=== PATIENT | male | born 1985 | race Caucasian/White ===

== ENCOUNTER 2018-04-09 21:11 | Emergency (ER) | END 2018-04-09 23:28 | disposition home or self-care (01) ==

== ENCOUNTER 2018-08-07 12:28 | Emergency (ER) | END 2018-08-07 15:14 | disposition home or self-care (01) ==

== ENCOUNTER 2018-08-10 20:36 | Inpatient (IN) | payer OTHER ==
[~2018-08-10] VITALS: Ht 175.3 cm; Wt 107.1 kg
[~2018-08-10 20:36] MED LIST: FAMO20TA18 PO; HYDR-4011 PO
[2018-08-10] MEDS ORDERED: morphine 4 MG/ML VIAL IV STA (20:55)
[2018-08-10] MEDS ORDERED: FAMOTIDINE 20 MG INJ IV STA (20:55)
[2018-08-10] MEDS ORDERED: SOD CHLORIDE 0.9% 1,000 ML IV STA (20:55)
[2018-08-10] MEDS ORDERED: ONDANSETRON 4 MG INJ IV STA (20:55)
--- NOTE | 2018-08-10 21:44 | ERD ---
ER Documentation Chief Complaint Chief Complaint upper abdominal pain x 4 days HPI This is a 33-year-old male who presents emergency department complaining of upper abdominal pain for the past 4 days. Patient states he was seen here couple of days ago and was told everything was normal but his pain has worsened. States he has been taking the Minetto with limited improvement in symptoms. Denies any fevers or chills, cough, chest pain or shortness of breath. ROS All systems reviewed and are negative except as per history of present illness. Medications Home Meds Active Scripts Famotidine* (Famotidine*) 20 Mg Tablet, 20 MG PO BID, #60 TAB Prov:SURESH SIMMONS PA-C 08/07/18 Hydrocodone/Acetaminophen (Minetto 5-325 Tablet) 1 Each Tablet, 1 TAB PO Q6H PRN for PAIN, #7 TAB Prov:SURESH SIMMONS PA-C 08/07/18 Allergies Allergies: Coded Allergies: No Known Allergy (Unverified , 08/07/18) PMhx/Soc History of diabetes Medical and Surgical Hx: pt denies Surgical Hx History of Surgery: No Anesthesia Reaction: No Hx Neurological Disorder: No Hx Respiratory Disorders: No Hx Cardiac Disorders: Yes (HTN) Hx Psychiatric Problems: No Hx Miscellaneous Medical Probl: Yes (DM) Hx Alcohol Use: Yes (OCASSIONALLY) Hx Substance Use: No Hx Tobacco Use: Yes (2 PACKS DAILY) Smoking Status: Current every day smoker FmHx Family History: diabetes; No coronary disease Physical Exam Vitals Vital Signs Date Temp Pulse Resp B/P (MAP) Pulse Ox O2 O2 Flow FiO2 Time Delivery Rate 08/10/18 97.8 102 20 144/95 98 20:38 (111) Physical Exam Const: obese, No acute distress Head: Atraumatic Eyes: Normal Conjunctiva ENT: Normal External Ears, Nose and Mouth. Neck: Full range of motion. No meningismus. Resp: Clear to auscultation bilaterally Cardio: Regular rate and rhythm, no murmurs Abd: Soft, realized upper abdominal tenderness. Non distended. Normal bowel sounds No tenderness to McBurney's. Skin: No petechiae or rashes Back: No midline or flank tenderness Ext: No cyanosis, or edema Neur: Awake and alert Psych: Normal Mood and Affect Result Diagram: 08/10/18210408/10/182104 Results 24 hrs Laboratory Tests Test 08/10/18 21:05 White Blood Count 9.7 10^3/ul Red Blood Count 5.42 10^6/ul Hemoglobin 13.8 g/dl Hematocrit 39.3 % Mean Corpuscular Volume 77.7 fl Mean Corpuscular Hemoglobin 27.3 pg Mean Corpuscular Hemoglobin Concent 35.1 g/dl Red Cell Distribution Width 13.8 % Platelet Count 217 10^3/UL Mean Platelet Volume 11.1 fl Immature Granulocytes % 0.500 % Neutrophils % 65.9 % Lymphocytes % 25.8 % Monocytes % 5.4 % Eosinophils % 2.0 % Basophils % 0.4 % Nucleated Red Blood Cells % 0.0 /100WBC Immature Granulocytes # 0.050 10^3/ul Neutrophils # 6.4 10^3/ul Lymphocytes # 2.5 10^3/ul Monocytes # 0.5 10^3/ul Eosinophils # 0.2 10^3/ul Basophils # 0.0 10^3/ul Nucleated Red Blood Cells # 0.0 10^3/ul Urine Color STRAW Urine Clarity CLEAR Urine pH 6.0 Urine Specific [place] 1.027 Urine Ketones NEGATIVE mg/dL Urine Nitrite NEGATIVE mg/dL Urine Bilirubin NEGATIVE mg/dL Urine Urobilinogen NEGATIVE mg/dL Urine Leukocyte Esterase NEGATIVE Jessica/ul Urine Microscopic RBC 3 /HPF Urine Microscopic WBC 0 /HPF Urine Hemoglobin 1+ mg/dL Urine Glucose 3+ mg/dL Urine Total Protein 1+ mg/dl Sodium Level 141 mmol/L Potassium Level 5.0 mmol/L Chloride Level 97 mmol/L Carbon Dioxide Level 23 mmol/L Anion Gap 21 Blood Urea Nitrogen 13 mg/dl Creatinine 0.72 mg/dl Est Glomerular Filtrat Rate mL/min > 60 mL/min Glucose Level 306 mg/dl Calcium Level 10.3 mg/dl Total Bilirubin 0.2 mg/dl Direct Bilirubin 0.00 mg/dl Indirect Bilirubin 0.2 mg/dl Aspartate Amino Transf (AST/SGOT) 74 IU/L Alanine Aminotransferase (ALT/SGPT) 57 IU/L Alkaline Phosphatase 81 IU/L Total Protein 8.2 g/dl Albumin 5.3 g/dl Globulin 2.90 g/dl Albumin/Globulin Ratio 1.82 Lipase 564 U/L Current Medications Medications Dose Sig/Anila Start Time Status Last (Trade) Ordered Route PRN Stop Time Admin Dose Reason Admin Sodium 1,000 ml @ Q1H STAT 08/10/18 DC 08/10/18 Chloride 1,000 mls/hr IV 20:55 21:09 08/10/18 21:54 Morphine 6 mg ONCE STAT 08/10/18 DC 08/10/18 Sulfate IV 20:55 21:09 (morphine) 08/10/18 20:57 Ondansetron 4 mg ONCE STAT 08/10/18 DC 08/10/18 HCl (Zofran IV 20:55 21:09 Inj) 08/10/18 20:57 Famotidine 20 mg ONCE STAT 08/10/18 DC 08/10/18 (Pepcid Iv) IV 20:55 21:09 08/10/18 20:57 DIAGNOSTIC IMAGING REPORT Patient: CAITLIN CROUCH : 1985 Age: 33 Sex: M MR #: [id number] DOS: 08/10/182054 Ordering MD: INDU LOPEZ PA-C Location: [facility] Room/Bed: PROCEDURE: Abdominal ultrasound, limited. CLINICAL INDICATION: Abdominal pain. TECHNIQUE: Multiple real-time images were acquired of the patient's right upper abdomen utilizing a high resolution transducer. COMPARISON: 08/07/2018. FINDINGS: The liver demonstrates increased echogenicity and size measuring 22.5 cm. There is no focal mass or intrahepatic biliary ductal dilatation. The portal vein is patent. The gallbladder is not distended. No gallstones are identified. There is no pericholecystic fluid or gallbladder wall thickening. The common bile duct measures 4.7 mm in maximal dimension. The pancreas is obscured by overlyin g bowel gas. No free fluid is identified. The right kidney is normal size and echogenicity measuring 13.9 cm. There is no focal renal mass or echogenic calculus identified. There is no obstructive uropathy. IMPRESSION: Enlarged liver with fatty infiltration. Pancreas obscured by overlying bowel gas. .Param Fitzgerald MD, Date Time Electronically viewed and signed by .Param Fitzgerald MD, on 08/10/2018 21:54 .T/ CC: INDU LOPEZ PA-C [id number] DIAGNOSTIC IMAGING REPORT Patient: CAITLIN CROUCH : 1985 Age: 33 Sex: M MR #: [id number] DOS: 08/10/182054 Ordering MD: INDU LOPEZ PA-C Location: [facility] Room/Bed: PROCEDURE: CT Abdomen and pelvis without contrast. CLINICAL INDICATION: Abdominal pain. TECHNIQUE: CT scan of the abdomen and pelvis was performed on a multi- detector high-resolution CT scanner. Contiguous axial images were obtained from the lung bases to the ischial tuberosities without intravenous contrast. Coronal and sagittal reformatted images were also obtained. Images were reviewed on the PACS workstation. DICOM images are available. One or more of the following dose reduction techniques were used: - Automated exposure control. - Adjustment of the mA and/or kV according to patient size. - Use of iterative reconstruction technique. Exam CTD/vol = 21.01 mGy. Total exam DLP = 1400.95 mGy-cm. COMPARISON: None. FINDINGS: Evaluation of the lung bases demonstrates no pleural or parenchymal disease. Abdomen: The liver is normal in size and diffusely low in attenuation consistent with fatty infiltration. There is no focal mass or dilatation of the biliary tree. The gallbladder is not distended. The spleen, pancreas and bilateral adrenal glands are within normal limits. Bilateral kidneys are normal in size with no contour deforming mass identified. There is no radiopaque renal or ureteral calculus identified. There is no hydronephrosis or hydroureter. There is no retroperitoneal adenopathy. The abdominal aorta is of normal caliber. There is no abnormal bowel wall thickening or distension. There is no bowel obstruction or free air. A normal appendix is identified. There is no diverticulosis or diverticulitis. There is no ascites. Pelvis: The bladder is unremarkable. The prostate and seminal vesicles are within normal limits. There is no significant pelvic adenopathy or free fluid. Evaluation of the osseous structures demonstrates no suspicious lytic or blastic lesion. IMPRESSION: No acute abnormality identified within the abdomen and pelvis. Fatty infiltration of the liver. .Param Fitzgerald MD, MD Date Time Electronically viewed and signed by .Param Fitzgerald MD, MD on 08/10/2018 21:53 .T/ CC: INDU LOPEZ PA-C [phone] DIAGNOSTIC IMAGING REPORT Patient: CAITLIN CROUCH : 1985 Age: 33 Sex: M MR #: [id number] DOS: 08/10/182220 Ordering MD: INDU LOPEZ PA-C Location: [facility] Room/Bed: PROCEDURE: XR Chest. CLINICAL INDICATION: Cough, upper abdominal pain TECHNIQUE: 2 frontal views of the chest were obtained COMPARISON: CT 08/10/2018; DR CHEST 04/09/2018 FINDINGS: The heart and mediastinum are within normal limits. The lungs are clear. There is no pleural effusion or pneumothorax. IMPRESSION: No acute disease. RPTAT: HJES .Oziel Harden MD, MD Date Time Electronically viewed and signed by .Oziel Harden MD, MD on 08/10/2018 23:42 .S/ CC: INDU LOPEZ PA-C [phone] Procedures/MDM This is a 33-year-old male who presents emerged department complaining of upper abdominal pain for the past 4 days. Upon review of patient's medical records patient was seen here 4 days ago and had laboratory workup as well as a right upper quadrant ultrasound that was unremarkable with the exception of a fatty liver. There is no evidence of gallstones or common bile ducts. Patient had elevated blood glucose but all other laboratory work was within normal limits. Given patient's return visit today for worsening of pain I did repeat laboratory workup as well as a right upper quadrant ultrasound and CT abdomen pelvis noncontrast. Laboratory workup no elevated white blood cell count. His hemoglobin is very minimally decreased. Platelets are within normal limits. Electrolytes are within normal limits. Glucose is mildly elevated at 306. Liver enzymes are mildly elevated. Lipase is elevated at 564. UA 3+ glucose and negative ketones. Leukocyte esterase negative nitrites negative hematuria. Right upper Quadrant ultrasound shows gallbladder is not distended. There are no gallstones. There is no pericardial fluid or gallbladder wall thickening. Common bile duct measures 4.7 mm in maximal dimension there is no free fluid. Is an enlarged fatty liver. CT abdomen pelvis noncontrast shows no acute abnormality. Gallbladder is nondistended. Spleen pancreas and adrenal glands are within normal limits. There is no bowel obstruction or free air. There is no diverticulosis or diverticulitis. There is no ascites. Patient was given IV fluids, morphine, Zofran here in the emergency department however pain persisted. I discussed the patient with Dr. Blanchard and he recommend patient could be admitted for abdominal pain, pain control and further evaluation of his elevated lipase and laboratory workup. Recommended a chest x- ray given location of patient's pain and history of smoking 2 packs of cigarettes a day. Chest X-ray shows no acute disease. Low suspicion for pneumonia PE abscess pleural effusion or pneumothorax. Patient was counseled for greater than 3 minutes on smoking cessation. She does endorse that he has had decreased bowel movement for the past 3 days however his pain started prior today. And he do not believe that constipation is the cause of patient's pain. Symptoms at this time consistent with abdominal pain uncertain etiology, however may be secondary to increasing lipase. There is no evidence of acute surgical abdomen at this time. Patient denies any shortness of breath I do not believe that this is coming from his lungs although he does endorse having had a cough for quite some time. I discussed patient being admitted for further evaluation and pain control and patient initially did not want to be admitted to the hospital. I explained the risks of leaving AGAINST MEDICAL ADVICE and patient then decided that he would stay here in the hospital for further evaluation. Any further orders placed will be completed by Dr. Blanchard or the admitting physician. 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
[2018-08-11 00:20] VITALS: BP 140/84; PULSE 90; RESP 17
[2018-08-11 00:44] VITALS: Ht 175.3 cm; Wt 107.1 kg
[2018-08-11] MEDS ORDERED: HYDROmorphONE 1 MG/ML SYG IV PRN (01:00)
[2018-08-11] MEDS ORDERED: DOCUSATE SODIUM 100 MG CAP PO PRN (01:00)
[2018-08-11] MEDS ORDERED: BISACODYL 10 MG SUPP PR PRN (01:00)
[2018-08-11] MEDS ORDERED: ONDANSETRON 4 MG INJ IV PRN (01:00)
[2018-08-11] MEDS ORDERED: ACETAMINOPHEN 325 MG TAB PO PRN (01:00)
[2018-08-11] MEDS ORDERED: MAGNESIUM HYDROXIDE 30ML CUP PO PRN (01:00)
[2018-08-11] MEDS ORDERED: NACL 0.9% 3 ML SYG IV SCH (01:00)
[2018-08-11] MEDS: SOD CHLORIDE 0.9% 1,000 ML IV SCH ×3 (01:20→20:20)
[2018-08-11] MEDS ORDERED: GLUCOSE GEL 15 GRAM TUBE PO PRN ×2 (07:00)
[2018-08-11] MEDS ORDERED: GLUCAGON 1 MG INJ IM PRN (07:00)
[2018-08-11] MEDS ORDERED: DEXTROSE 50% 50 ML SYRINGE IV PRN ×2 (07:00)
[2018-08-11] MEDS ORDERED: GLUCOSE GEL 15 GRAM TUBE BUCCAL PRN (07:00)
[2018-08-11 07:15] VITALS: BP 136/80; PULSE 80; RESP 18
[2018-08-11] MEDS: FAMOTIDINE 20 MG INJ IV SCH ×2 (08:38→20:27)
[2018-08-11] MEDS: INSULIN ASPART [NOVOLOG] 3 ML PEN SC SCH ×4 (08:40→21:45)
--- NOTE | 2018-08-11 10:54 | HP ---
Date/Time of Note Date/Time of Note DATE: 08/11/18 TIME: 10:40 Assessment/Plan VTE Prophylaxis Risk score (from Ns)>0 risk: 1 SCD applied (from Ns): Yes Pharmacological prophylaxis: NA/contraindicated Pharm contraindication: low risk/ambulating Lines/Catheters IV [facility]from [facility] Saline Lock Assessment/Plan Assessment/Plan 33-year-old male with: 1. Acute pancreatitis, likely secondary to hypertriglyceridemia, possibly also to EtOH but patient only binge drinks and his last episode of binge drinking was July 18. IV fluids, pain control. Start gemfibrozil 600 mg p.o. twice daily Pancreatic enzymes has normalized, was started on clear liquids after MRCP done this morning. If MRCP negative and patient tolerating clears, his diet will be advanced as tolerated to ADA diet 2. Diabetes mellitus, A1c 8.0, patient will need better control of his blood sugars, I have advised for him to increase his metformin to 1000 mg p.o. twice daily but also to be compliant with a carbohydrate controlled diet. He will need diabetic education as an outpatient. 3. Tobacco use, heavy, he has been counseled and recommendations are to quit if possible or at least cut down. Nicotine patch while inpatient. 4. Constipation: Bowel regimen. 5. GERD/gastritis: Continue PPI or H2 blockers Prophylaxis: SCDs for DVT prophylaxis, Pepcid for GI ppx Disposition: MRCP today, start clear liquids, hopefully discharge planning in the next 24 hours if no acute findings on MRCP and patient tolerates p.o. Result Diagram: 08/11/18 0442 08/11/18 0442 Results 24hrs Laboratory Tests Test 08/10/18 21:05 08/11/18 04:42 08/11/18 08:15 08/11/18 08:35 White Blood 9.7 # 7.2 # Count Red Blood Count 5.42 4.94 Hemoglobin 13.8 L 13.0 L Hematocrit 39.3 L 38.6 L Mean Corpuscular 77.7 L 77.5 L Volume Mean Corpuscular 27.3 L 26.2 L Hemoglobin Mean Corpuscular 35.1 33.7 Hemoglobin Daina nt Red Cell 13.8 13.9 Distribution Width Platelet Count 217 180 Mean Platelet 11.1 H 11.2 H Volume Immature 0.500 H 0.700 H Granulocytes % Neutrophils % 65.9 65.2 Lymphocytes % 25.8 24.6 Monocytes % 5.4 6.3 Eosinophils % 2.0 2.8 Basophils % 0.4 0.4 Nucleated Red 0.0 0.0 Blood Cells % Immature 0.050 H 0.050 H Granulocytes # Neutrophils # 6.4 4.7 Lymphocytes # 2.5 1.8 Monocytes # 0.5 0.5 Eosinophils # 0.2 0.2 Basophils # 0.0 0.0 Nucleated Red 0.0 0.0 Blood Cells # Urine Color STRAW Urine Clarity CLEAR Urine pH 6.0 Urine Specific 1.027 [place] Urine Ketones NEGATIVE Urine Nitrite NEGATIVE Urine Bilirubin NEGATIVE Urine NEGATIVE Urobilinogen Urine Leukocyte NEGATIVE Esterase Urine 3 Microscopic RBC Urine 0 Microscopic WBC Urine Hemoglobin 1+ H Urine Glucose 3+ H Urine Total 1+ H Protein Sodium Level 141 138 Potassium Level 5.0 4.2 Chloride Level 97 101 Carbon Dioxide 23 20 L Level Anion Gap 21 H 17 H Blood Urea 13 11 Nitrogen Creatinine 0.72 0.58 L Est Glomerular > 60 > 60 Filtrat Rate mL/min Glucose Level 306 H 271 H Calcium Level 10.3 H 8.4 Total Bilirubin 0.2 0.3 Direct Bilirubin 0.00 0.00 Indirect 0.2 0.3 Bilirubin Aspartate Amino 74 H 38 Transf (AST/SGOT ) Alanine 57 46 Aminotransferase (ALT/SGPT) Alkaline 81 78 Phosphatase Total Protein 8.2 H 6.8 # Albumin 5.3 H 4.1 # Globulin 2.90 2.70 Albumin/Globulin 1.82 1.51 Ratio Lipase 564 H 272 Segmented 61 Neutrophils % (Manual) Band Neutrophils 3 % (Manual) Lymphocytes % 28 (Manual) Reactive 2 H Lymphocytes % (Manual) Monocytes % 3 (Manual) Eosinophils % 3 (Manual) Neutrophils # 4.4 (Manual) Band Neutrophils 0.2 # Lymphocytes 2.0 (Manual) Reactive 0.1 H Lymphocytes # Monocytes # 0.2 L (Manual) Platelet NORMAL Estimate Anisocytosis 3+ Microcytosis 3+ Hemoglobin A1c 8.0 H Phosphorus Level 4.7 Magnesium Level 1.7 Triglycerides > 1575 H Level Cholesterol 381 H Level LDL Cholesterol, Calculated HDL Cholesterol 17 L Cholesterol/HDL 22.4 Ratio Amylase Level 62 Urine Opiates Positive Screen Urine Negative Barbiturates Urine Negative Amphetamines Screen Urine Negative Benzodiazepines Screen Urine Cocaine Negative Screen Urine Negative Cannabinoids Bedside Glucose 286 H HPI/ROS Admit Date/Time Admit Date/Time Aug 11, 2018 at 00:03 Hx of Present Illness Chief complaint: Epigastric pain History of presenting illness: 33-year-old male with diabetes mellitus, on Metformin, presented the emergency department with epigastric pain for almost 1 week now. Patient reports that onset of the pain was approximately 6 days ago, started approximately at the 4-5/10. No nausea, no vomiting, no change in appetite, he has been able to eat throughout but has noticed that the pain worsens after eating. He is not on a diabetic or low fat diet, not really compliant with diet. He is a heavy tobacco user, 2 packs a day. He drinks occasionally but binge drinks when he does. Patient was in the emergency department approximately 4 days ago, he was evaluated with a gallbladder ultrasound which was negative for any cholelithiasis, lipase was approximately 200, patient was discharged home with instruction to follow-up with his primary care physician. Patient did not follow-up, he represented in the emergency department last night with complaint of worsening epigastric pain now up to 8/10, he was again evaluated in the emergency department with a gallbladder ultrasound and a CAT scan of the abdomen and pelvis, both did not show signs of cholelithiasis, although he did show again significant fatty liver. Patient was kept n.p.o. with IV fluids and pain control. This morning his lipase and amylase has normalized, as part of his workup lipid panel was sent, he has significant hypertriglyceridemia which is likely the cause of his pancreatitis. He will be started on fenofibrate. MRCP is pending, patient will be started on a clear liquid postprocedure. If MRCP remains negative and patient tolerate clears, he will be advanced as tolerated. Patient and his family has been updated about his current diagnosis, possible etiology of his pancreatitis at this point and the plan of care. Patient denies any previous episode of epigastric pain, no fevers, no chills. ROS Constitutional: no complaints ENT: no complaints Respiratory: no complaints Cardiovascular: no complaints Gastrointestinal: pain (Epigastric), other (Constipation) Genitourinary: no complaints Musculoskeletal: no complaints Neurologic: no complaints Endocrine: no complaints Lymphatic: no complaints Psychological: no complaints PMH/Family/Social Past Medical History Medical History: no pertinent history Medications Current Medications IV Flush (NS 3 ml) 3 ml PER PROTOCOL IV ; Start 08/11/18 at 01:00 Ondansetron HCl (Zofran Inj) 4 mg Q6H PRN IV NAUSEA AND/OR VOMITING; Start 08/11/18 at 01:00 Acetaminophen (Tylenol Tab) 650 mg Q6H PRN PO PAIN LEVEL 1-3 OR FEVER; Start 08/11/18 at 01:00 Docusate Sodium (Colace) 100 mg Q12H PRN PO CONSTIPATION; Start 08/11/18 at 01:00 Magnesium Hydroxide (Milk Of Mag) 30 ml DAILY PRN PO CONSTIPATION; Start 08/11/18 at 01:00 Bisacodyl (Dulcolax Supp) 10 mg DAILY PRN VT CONSTIPATION; Start 08/11/18 at 01:00 Famotidine (Pepcid Iv) 20 mg Q12 IV Last administered on 08/11/18at 08:38; Admi n Dose 20 MG; Start 08/11/18 at 09:00 Hydromorphone HCl (Dilaudid) 1 mg Q3H PRN IV SEVERE PAIN LEVEL 7-10; Start 08/11/18 at 01:00 Sodium Chloride 1,000 ml @ 125 mls/hr Q8H IV Last administered on 08/11/18at 08:44; Admin Dose 125 MLS/HR; Start 08/11/18 at 01:00 Insulin Aspart (Novolog Insulin Pen) NOVOLOG *MODERATE* ALGORI... Q4 SC Last administered on 08/11/18at 08:40; Admin Dose 8 UNIT; Start 08/11/18 at 09:00 Miscellaneous Information 1 ea NOTE XX ; Start 08/11/18 at 07:00 Glucose (Glutose) 15 gm Q15M PRN PO DECREASED GLUCOSE; Start 08/11/18 at 07:00 Glucose (Glutose) 22.5 gm Q15M PRN PO DECREASED GLUCOSE; Start 08/11/18 at 07:00 Dextrose (D50w Syringe) 25 ml Q15M PRN IV DECREASED GLUCOSE; Start 08/11/18 at 07:00 Dextrose (D50w Syringe) 50 ml Q15M PRN IV DECREASED GLUCOSE; Start 08/11/18 at 07:00 Glucagon (Glucagen) 1 mg Q15M PRN IM DECREASED GLUCOSE; Start 08/11/18 at 07:00 Glucose (Glutose) 15 gm Q15M PRN BUCCAL DECREASED GLUCOSE; Start 08/11/18 at 07:00 Gemfibrozil (Lopid) 600 mg BID PO ; Start 08/11/18 at 11:30 Coded Allergies: No Known Allergy (Unverified , 08/07/18) Past Surgical History Past Surgical Hx: no surgical history Family History Significant Family History: no pertinent family hx Social History Alcohol Use: occasionally (But patient binge drinks more or less once a month.) Smoking Status: Current every day smoker (2 packs a day, for the past 14 years.) Drug Use: none Exam/Review of Systems Vital Signs Vitals Vital Signs Date Temp Pulse Resp B/P (MAP) Pulse Ox O2 O2 Flow FiO2 Time Delivery Rate 08/11/18 98.3 80 18 136/80 100 Room Air 07:15 (98) Intake and Output 08/10/18 08/10/18 08/11/18 1515:00 23:00 07:00 IntakeIntake Total 625 ml BalanceBalance 625 ml Exam Constitutional: alert, oriented, well developed, other (Obese) Respiratory: clear to auscultation, normal air movement Cardiovascular: regular rate and rhythm, nl pulses Gastrointestinal: soft, tender (Epigastric tenderness to palpation.) Musculoskeletal: nl extremities to inspection, nl gait and stance Extremities: normal pulses Neurological: INVESTIGATION MANAGER II-XII intact, nl mental status, nl speech, nl strength Additional Comments PROCEDURE: US Abdomen (right upper quadrant). CLINICAL INDICATION: Abdominal pain TECHNIQUE: Multiple real-time longitudinal and transverse images of the right upper quadrant of the abdomen were acquired utilizing a curved array transducer. Images were reviewed on a high-resolution PACS workstation. COMPARISON: None FINDINGS: The liver is enlarged measuring 23 cm and demonstrates diffusely increased echogenicity without focal mass or intrahepatic biliary dilatation. The gallbladder is normal. There is no pericholecystic fluid or gallbladder wall thickening or gallstones. No intra or extrahepatic biliary dilatation is seen. The common bile duct measures 4.1 mm in maximal dimension. The visualized portions of the pancreas are unremarkable with obscuration of the tail of the pancreas. No free fluid is identified. The right kidney measures 12.6 cm in length. There is normal echogenicity within the right kidney. There is no perinephric fluid collection. No hydronephrosis, mass, or calculus is seen. IMPRESSION: Hepatomegaly and hepatic steatosis. Otherwise, unremarkable right upper quadrant ultrasound. RPTAT: JJ .Brody Andrews MD, MD Date Time Electronically viewed and signed by .Broyd Andrews MD, MD on 08/07/2018 13:24 PROCEDURE: Abdominal ultrasound, limited. CLINICAL INDICATION: Abdominal pain. TECHNIQUE: Multiple real-time images were acquired of the patient's right upper abdomen utilizing a high resolution transducer. COMPARISON: 08/07/2018. FINDINGS: The liver demonstrates increased echogenicity and size measuring 22.5 cm. There is no focal mass or intrahepatic biliary ductal dilatation. The portal vein is patent. The gallbladder is not distended. No gallstones are identified. There is no pericholecystic fluid or gallbladder wall thickening. The common bile duct measures 4.7 mm in maximal dimension. The pancreas is obscured by overlying bowel gas. No free fluid is identified. The right kidney is normal size and echogenicity measuring 13.9 cm. There is no focal renal mass or echogenic calculus identified. There is no obstructive uropathy. IMPRESSION: Enlarged liver with fatty infiltration. Pancreas obscured by overlying bowel gas. .Param Fitzgerald MD, MD Date Time Electronically viewed and signed by .Param Fitzgerald MD, MD on 08/10/2018 21:54 .T/ PROCEDURE: CT Abdomen and pelvis without contrast. CLINICAL INDICATION: Abdominal pain. TECHNIQUE: CT scan of the abdomen and pelvis was performed on a multi- detector high-resolution CT scanner. Contiguous axial images were obtained from the lung bases to the ischial tuberosities without intravenous contrast. Coronal and sagittal reformatted images were also obtained. Images were reviewed on the PACS workstation. DICOM images are available. One or more of the following dose reduction techniques were used: - Automated exposure control. - Adjustment of the mA and/or kV according to patient size. - Use of iterative reconstruction technique. Exam CTD/vol = 21.01 mGy. Total exam DLP = 1400.95 mGy-cm. COMPARISON: None. FINDINGS: Evaluation of the lung bases demonstrates no pleural or parenchymal disease. Abdomen: The liver is normal in size and diffusely low in attenuation consistent with fatty infiltration. There is no focal mass or dilatation of the biliary tree. The gallbladder is not distended. The spleen, pancreas and bilateral adrenal glands are within normal limits. Bilateral kidneys are normal in size with no contour deforming mass identified. There is no radiopaque renal or ureteral calculus identified. There is no hydronephrosis or hydroureter. There is no retroperitoneal adenopathy. The abdominal aorta is of normal daria yuli. There is no abnormal bowel wall thickening or distension. There is no bowel obstruction or free air. A normal appendix is identified. There is no diverticulosis or diverticulitis. There is no ascites. Pelvis: The bladder is unremarkable. The prostate and seminal vesicles are within normal limits. There is no significant pelvic adenopathy or free fluid. Evaluation of the osseous structures demonstrates no suspicious lytic or blastic lesion. IMPRESSION: No acute abnormality identified within the abdomen and pelvis. Fatty infiltration of the liver. .Param Fitzgerald MD, Date Time Electronically viewed and signed by .Param Fitzgerald MD, on 08/10/2018 21:53 .T/ MRCP pending CHADD KARIMI Aug 11, 2018 10:54
[2018-08-11] MEDS ORDERED: HYDR-4011 PO (12:25)
[2018-08-11] MEDS ORDERED: MTF1000T PO (12:25)
[2018-08-11] MEDS ORDERED: GEMF600T4 PO (12:25)
--- NOTE | 2018-08-11 12:26 | PDOCDIS ---
Discharge Instructions CONDITION [id number] Patient Condition: [id number] Stable HOME CARE INSTRUCTIONS: [id number] Diet Instructions: [id number] Low Fat /Cholesterol [id number] Special Diet: [id number] Carbohydrate controlled diet, soft diet x 2 d prior to advancing to reg ACTIVITY: [id number] Activity Restrictions: [id number] Slowly Increase Activity FOLLOW UP/APPOINTMENTS Follow-up Plan Follow-up with primary care physician within 1 week. Referred to diabetic clinic as outpatient through [facility], A1c 8.0. OTHER ORDERS: Other Orders: Patient needs to be compliant with a low-fat/low-cholesterol, carbohydrate controlled diet. CHADD KARIMI Aug 11, 2018 12:26
[2018-08-11] MEDS: GEMFIBROZIL 600 MG TAB PO SCH ×2 (12:53→20:26)
[2018-08-11] MEDS: NICOTINE (21 MG/24 HR) PATCH TRANSDERM SCH (12:54)
[2018-08-11] MEDS ORDERED: DOCUSATE SODIUM 100 MG CAP PO SCH (13:00)
[2018-08-11 14:50] VITALS: BP 132/77; PULSE 86; RESP 18
--- NOTE | 2018-08-11 16:20 | NUR ---
NURSING NOTE: Pt informed me that he removed the Nicotine patch placed on his upper left arm. Pt states that it is "too strong" and that he hasn't smoked in 2 days and feels fine. Will endorse to supervisor spinning RN.
--- NOTE | 2018-08-11 18:40 | NUR ---
END OF SHIFT NOTE: Pt down for MRI of abd STAT, results negative. Pt advanced to clear liquids for lunch and full liquids for dinner. Pt to be advanced to soft diet if dinner is tolerated. Pt with anticipated discharge tomorrow per Dr. Connors. AccuCheck done q4hr. VSS, call hernandez within reach, hourly rounding maintained.
[2018-08-11 19:34] VITALS: BP 133/79; PULSE 86; RESP 18
[2018-08-11] MEDS: DOCUSATE SODIUM 100 MG CAP PO SCH (20:26)
[2018-08-11] MEDS ORDERED: INSULIN ASPART [NOVOLOG] 3 ML PEN SC SCH (21:00)
[2018-08-12 02:15] VITALS: BP 122/73; PULSE 75; RESP 18
[2018-08-12] MEDS: SOD CHLORIDE 0.9% 1,000 ML IV SCH (06:43)
[2018-08-12 07:43] VITALS: BP 124/66; PULSE 72; RESP 18
[2018-08-12] MEDS: GEMFIBROZIL 600 MG TAB PO SCH (08:50)
[2018-08-12] MEDS: DOCUSATE SODIUM 100 MG CAP PO SCH (08:50)
[2018-08-12] MEDS: FAMOTIDINE 20 MG INJ IV SCH (08:50)
[2018-08-12] MEDS: INSULIN ASPART [NOVOLOG] 3 ML PEN SC SCH (08:53)
[2018-08-12] MEDS: NICOTINE (21 MG/24 HR) PATCH TRANSDERM SCH (09:00)
--- NOTE | 2018-08-12 11:19 | NUR ---
DISCHARGE NOTE: Pt stable for discharge. Discharge instructions given to pt, verbalized understanding, prescriptions placed in folder. IV removed, tip intact, site asymptomatic. All valuables collected by pt and spouse. Pt refused wheelchair, accompanied by down to front lobby.
--- NOTE | 2018-08-14 16:13 | DS ---
Date/Time of Note Date/Time of Note DATE: 08/14/18 TIME: 16:09 Discharge Summary Admission/Discharge Info Admit Date/Time Aug 11, 2018 at 00:03 Discharge Date/Time Aug 12, 2018 at 11:15 Discharge Diagnosis 1. Acute pancreatitis, likely secondary to hypertriglyceridemia, 2. Diabetes mellitus, A1c 8.0, 3. Tobacco use, heavy, 4. Constipation 5. GERD/gastritis Patient Condition: Stable Consults none Procedures none Hx of Present Illness Chief complaint: Epigastric pain History of presenting illness: 33-year-old male with diabetes mellitus, on Metformin, presented the emergency department with epigastric pain for almost 1 week now. Patient reports that onset of the pain was approximately 6 days ago, started approximately at the 4-5/10. No nausea, no vomiting, no change in appetite, he has been able to eat throughout but has noticed that the pain worsens after eating. He is not on a diabetic or low fat diet, not really compliant with diet. He is a heavy tobacco user, 2 packs a day. He drinks occasionally but binge drinks when he does. Patient was in the emergency department approximately 4 days ago, he was evaluated with a gallbladder ultrasound which was negative for any cholelithiasis, lipase was approximately 200, patient was discharged home with instruction to follow-up with his primary care physician. Patient did not follow-up, he represented in the emergency department last night with complaint of worsening epigastric pain now up to 8/10, he was again evaluated in the emergency department with a gallbladder ultrasound and a CAT scan of the abdomen and pelvis, both did not show signs of cholelithiasis, although he did show again significant fatty liver. Patient was kept n.p.o. with IV fluids and pain control. This morning his lipase and amylase has normalized, as part of his workup lipid panel was sent, he has significant hypertriglyceridemia which is likely the cause of his pancreatitis. He will be started on fenofibrate. MRCP is pending, patient will be started on a clear liquid postprocedure. If MRCP remains negative and patient tolerate clears, he will be advanced as tolerated. Patient and his family has been updated about his current diagnosis, possible etiology of his pancreatitis at this point and the plan of care. Patient denies any previous episode of epigastric pain, no fevers, no chills. Hospital Course MRCP was negative for any gallstones or cholelithiasis. The patient pancreatic enzymes were normal by hospital day #2. He started on clears and was advanced to soft on 08/12. His lipid panel did show significant hypertriglyceridemia which is likely the etiology of this episode of pancreatitis. Patient was educated regarding low-fat diet but also carbohydrate controlled diet in setting of known diabetes mellitus. He was put on gemfibrozil. Patient was discharged in stable condition, tolerating p.o., no abdominal pain no nausea. He is to follow-up with his primary care physician. Home Meds Active Scripts Metformin* (Glucophage*) 1,000 Mg Tablet, 1000 MG PO BID for 30 Days, #60 TAB 3 Refills Prov:CHADD KARIMI 08/11/18 Gemfibrozil* (Gemfibrozil*) 600 Mg Tablet, 600 MG PO BID for 30 Days, TAB 3 Refills Prov:CHADD KARIMI 08/11/18 Hydrocodone/Acetaminophen ([place] 5-325 Tablet) 1 Each Tablet, 1 TAB PO Q6H PRN for PAIN, #20 TAB Prov:CHADD KARIMI 08/11/18 Famotidine* (Famotidine*) 20 Mg Tablet, 20 MG PO BID, #60 TAB Prov:SURESH SIMMONS PA-C 08/07/18 Follow-up Plan Follow-up with primary care physician within 1 week. Referred to diabetic clinic as outpatient through [facility], A1c 8.0. Primary Care Provider Not On Staff Doctor Time spent on discharge: > 30 minutes CHADD KARIMI Aug 14, 2018 16:13
== END 2018-08-12 11:15 | disposition home or self-care (01) | DRG 642 ==
LOC: FTE 20:36 → MS1 08-11 00:03
PROVIDERS: ADMIT Internal Medicine; ATTEND Internal Medicine
DX: E78.1 Pure hyperglyceridemia (principal); K85.90 Acute pancreatitis without necrosis or infection, unspecified; E11.9 Type 2 diabetes mellitus without complications; K59.00 Constipation, unspecified; K21.9 Gastro-esophageal reflux disease without esophagitis; K29.70 Gastritis, unspecified, without bleeding; F17.210 Nicotine dependence, cigarettes, uncomplicated; Z79.84 Long term (current) use of oral hypoglycemic drugs
CPT/HCPCS: 36415; 71045; 74176; 74181; 76705; 80053; 80061; 80307; 81001; 82150; 82962; 83036; 83690; 83735; 84100; 85025; 96374; 96375; J1815; J2270; J2405; J7030